=== PATIENT | female | born 2000 ===

== ENCOUNTER 2023-09-10 00:23 | Emergency (ER) | payer OTHER, SELFPAY ==
[2023-09-10 01:52] LABS: SARS-CoV-2 NAA Rapid Test Not Detected (NotDetected)
== END 2023-09-10 02:16 | disposition home or self-care (01) ==
LOC: ERS 00:23
DX: H66.41 Suppurative otitis media, unspecified, right ear (principal); H73.91 Unspecified disorder of tympanic membrane, right ear; Z20.822 Contact with and (suspected) exposure to COVID-19
CPT/HCPCS: 99283